=== PATIENT | female | born 1955 | race Caucasian/White ===

== ENCOUNTER 2024-08-30 11:16 | Outpatient (AMB) | payer OTHER, MEDICARE, SELFPAY ==
--- OUTSIDE RECORDS SUMMARY | 2024-08-26 23:59 | XMS_ITS | Continuity of Care Document ---
Author Organization [facility] Dustin lt Address [address] [place] [address]- Care Team Providers Care Reel Tender Name Role Phone Kaci NAIR, Uday Jefferson Primary Care Physician Encounter [facility] Date(s): 07/27/24 - 08/26/24 [facility] [address] [place] [address]- Encounter Type: Triage Allergies, Adverse Reactions, Alerts Substance Criticality Severity Reaction Reaction Severity Status codeine Active methadone-like opiates Active morphine Active Percocet Active Percodan Active Latex swollen and itc hy lips Active Immunizations Given and Recorded Vaccine Date Status Refusal Reason influenza virus vaccine, inactivated 11/10/21 Jon rded influenza virus vaccine, inactivated 12/16/20 Jon rded influenza virus vaccine, inactivated 10/24/19 Jon rded influenza virus vaccine, inactivated 10/19/18 Jon rded influenza virus vaccine, inactivated 11/04/17 Jon rded influenza virus vaccine, inactivated 11/24/16 Jon rded influenza virus vaccine, inactivated 11/23/15 Give n influenza virus vaccine, inactivated 11/10/15 Jon rded influenza virus vaccine, inactivated 07/16/15 Jon rded influenza virus vaccine, inactivated 05/14/14 Jon rded influenza virus vaccine, inactivated 03/23/13 Give n influenza virus vaccine, inactivated 01/18/08 Give n pneumococcal 20-valent conjugate vaccine 05/21/21 Recorded pneumococcal 13-valent vaccine 01/24/21 Given SARS-CoV-2 (COVID-19) mRNA BNT-162b2 vac 01/06/21 Recorded SARS-CoV-2 (COVID-19) mRNA BNT-162b2 vac 06/14/20 Recorded SARS-CoV-2 (COVID-19) mRNA BNT-162b2 vac 05/24/20 Recorded zoster vaccine, inactivated 03/04/20 Recorded zoster vaccine, inactivated 12/21/19 Recorded zoster vaccine, inactivated 1 05/28/17 Recorded Influenza Virus Vaccine (oldterm) 11/21/19 Recorde d Zoster Vaccine Live 09/07/16 Recorded Zostavax (oldterm) 08/22/16 Given tetanus-diphtheria toxoids (Td) 08/20/16 Given tetanus/diphtheria/pertussis, acel(Tdap) 06/03/15 Recorded FluLaval (oldterm) 2 11/19/11 Given FluLaval (oldterm) 11/14/09 Given Tet/Diphth/Acel, Pertussis (oldterm) 07/03/10 Give n Tetanus Toxoid Vaccine (oldterm) 06/16/99 Given 1Result Comment: [08/11/2017] ced mohr 2Admin Note: [facility] [facility] Medications divalproex sodium 500 mg oral tablet, extended release 1 tablet, By Mouth, Daily at bedtime, Take with 125mg tablet for total 625mg bedtime dose, # 90 tablet, 1 Refills, Maintenance, 07/02/23 10:37:00 AM EDT, [facility]/pharmacy #[id number], 158, cm, 05/17/23 13:32:00EDT, Height Start Date: 07/02/23 Status: Ordered Quantity: 90.0 Unit: tablet Repeat number: 2 Estrace Vaginal Cream 0.1 mg/g = 1 Gm, Vaginally, Every Wednesday and , # 42.5 Gm, 5 Refills, Maintenance, 05/26/24 9:58:00 AMEDT, [facility]/pharmacy #[id number], Partial fill upon patient request if the prescription is for a schedule IIopioid drug., 158, cm, 05/18/24 13:48:00 EDT, Height, 68.7, kg, 05/26/24 9:21:00 EDT, Dry Weight Start Date: 05/26/24 Status: Ordered Quantity: 42.5 Unit: g Repeat number: 6 folic acid 1 mg oral tablet 1, tablet, By Mouth, Daily, # 90 tablet, Refills 1, Maintenance, 06/16/24 3:01:00 PM EDT, Route to Pharmacy Electronically, [id number], 158, cm, 05/18/24 13:48:00 EDT, Height, 68.7, kg, 05/26/24 9:21:00 EDT, Dry Weight Start Date: 06/16/24 Status: Ordered Quantity: 90.0 Unit: tablet Repeat number: 1 levothyroxine 75 mcg (0.075 mg) oral tablet 1 tablet, By Mouth, Daily, # 90 tablet, 1 Refills, Maintenance, 08/17/24 4:15:00 PM EDT, [id number], 158, cm, 05/18/24 13:48:00 EDT, Height, 66.7, kg, 06/23/24 10:06:00 EDT, Dry Weight Start Date: 08/17/24 Status: Ordered Quantity: 90.0 Unit: tablet Repeat number: 1 lithium 150 mg oral capsule 1 capsule = 150 mg, By Mouth, Daily at bedtime, # 90 capsule, 1 Refills, Maintenance, 07/02/23 10:37:00 AM EDT, [facility]/pharmacy #[id number], 158, cm, 05/17/23 13:32:00 EDT, Height Start Date: 07/02/23 Status: Ordered Quantity: 90.0 Unit: capsule Repeat number: 2 mirabegron 25 mg oral tablet, extended release 1 tablet = 25 mg, By Mouth, Daily, do not crush or chew, # 30 tablet, 5 Refills, Maintenance, 05/26/24 9:52:00 AM EDT, ER Tablet, [facility]/pharmacy #[id number], Partial fill upon patient request if the prescription is for a schedule II opioid drug., 158, cm, 05/18/24 13:48:00 EDT, Height, 68.7, kg, 05/26/24 9:21:00 EDT, Dry Weight Start Date: 05/26/24 Status: Ordered Quantity: 30.0 Unit: tablet Repeat number: 6 mirabegron 50 mg oral tablet, extended release 1 tablet = 50 mg, By Mouth, Daily, do not crush or chew, # 90 tablet, 3 Refills, Maintenance, 08/25/24 11:06:00 AM EDT, ER Tablet, [facility]/pharmacy #[id number], Partial fill upon patient request if the prescription is for a schedule II opioid drug., 158, cm, 05/18/24 13:48:00 EDT, Height, 66.7, kg, 06/23/24 10:06:00 EDT, Dry Weight Start Date: 08/25/24 Status: Ordered Quantity: 90.0 Unit: tablet Repeat number: 4 mirabegron 50 mg oral tablet, extended release 1 tablet = 50 mg, By Mouth, Daily, do not crush or chew, # 30 tablet, 5 Refills, Maintenance, 06/23/24 10:15:00 AM EDT, ER Tablet, [facility]/pharmacy #[id number], Partial fill upon patient request if the prescription is for a schedule II opioid drug., 158, cm, 05/18/24 13:48:00 EDT, Height, 66.7, kg, 06/23/24 10:06:00 EDT, Dry Weight Start Date: 06/23/24 Status: Ordered Quantity: 30.0 Unit: tablet Repeat number: 6 omeprazole 40 mg oral enteric coated capsule 1 capsule, By Mouth, Daily, # 90 capsule, 1 Refills, Maintenance, 02/29/24 3:52:00 PM EST, [id number], 158, cm, 05/17/23 13:32:00 EDT, Height Start Date: 02/29/24 Status: Ordered Quantity: 90.0 Unit: capsule Repeat number: 1 propranolol 20 mg oral tablet 0.5, tablet, By Mouth, 3 times a day, # 135 tablet, Refills 5, Tot. Refills 5, Maintenance, 07/01/2409:38:00 AM EDT, Route to Pharmacy Electronically, [facility]/pharmacy #[id number], 158, cm, 05/17/23 13:32:00 EDT, Height Start Date: 07/02/23 Status: Ordered Quantity: 135.0 Unit: tablet Repeat number: 6 rosuvastatin 40 mg oral tablet 1 tablet, By Mouth, Daily, # 90 tablet, 1 Refills, Maintenance, 08/10/24 3:04:00 PM EDT, [id number], 158, cm, 05/18/24 13:48:00 EDT, Height, 66.7, kg, 06/23/24 10:06:00 EDT, Dry Weight Start Date: 08/10/24 Status: Ordered Quantity: 90.0 Unit: tablet Repeat number: 1 Problem List Condition Confirmation Course Effective Dates Status Health Status Informant Alport's syndrome 1 Confirmed Active Anemia Confirmed Active Bipolar disorder Confirmed Active Chronic kidney disease, stage 3a 2 Confirmed Active Colonoscopy 3 Confirmed Active Diverticulosis 4 Confirmed Active Dyskinesia Confirmed Active Esophageal reflux Confirmed Active 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 History of alcohol abuse Confirmed Active History of tobacco use Confirmed Active Hypercholesterolemia Confirmed Active Hypothyroid Confirmed Active Osteopenia Confirmed Active Osteoporosis Confirmed Active Right wrist pain Confirmed Active Polyp of colon 6 Confirmed Active PSP (progressive supranuclear palsy) Confirmed Active Decreased libido Confirmed Active RLS (restless legs syndrome) Confirmed Active Rhinitis Confirmed Active Left shoulder pain Confirmed Active Tremor Confirmed Active Tubular adenoma of colon Confirmed 08/06/16 Active Urinary incontinence Confirmed Active Vaginal dryness Confirmed Active 1causing persistent hematuria seen urology in past 2Per chart review meeting GFR criteria 3Colo 2011 normal, repeat 2021 4colo 2016 5left hip followed by [facility] 6colo 2016 Social History Social History Type Response Smoking Status Former smoker entered on: 03/23/13 Sex Sex Representation Female (finding) Patient Care team information Care Team Personnel Name: Jovita Perales RN Position: [facility] RN Member Role: Primary Care Nurse Name: Uday Clemons MD Position: [facility] Physician - Primary Care Member Role: PCP Address: [address] [place] [id number] Telecom: Name: Sarika Chamorro RN Position: S RN Member Role: Primary Care Nurse Name: Laura Purcell RN Position: S RN Member Role: Primary Care Nurse Care Team Related Persons Name: ABRAHAM GRANT Insurance Providers Guarantor name: AMISHAMEHRDAD GRANT Health Plan Information #: 1 Payer: MEDICARE B Payer Identifier: HANNA Member Number: [id number] Group Number: NA Subscriber Identifier: [id number] Relationship to Subscriber: self Coverage Type: NA Coverage Verification Date: NA Telecom: NA Address: Health Plan Information #: 2 Payer: [facility] Payer Identifier: NA Member Number: [id number] Group Number: HANNA Subscriber Identifier: [id number] Relationship to Subscriber: self Coverage Type: Medicare Other Coverage Verification Date: HANNA Telecom: HANNA Address: NA
--- NOTE | 2024-08-30 11:40 | A.OFFVIS_ITS ---
Intake Visit Reasons: 6m 6M RLS/?PSP Allergies codeine Allergy (Unknown, Verified 08/28/24 09:32) Unknown latex Allergy (Unknown, Verified 08/28/24 09:32) Unknown HPI Comments Details: 69 yo woman with underlying diagnosis of bipolar disorder and clinical features suggestive of possible mild progressive supranuclear palsy, and RLS. Multiple dopaminergic drugs were tried that did not help. But gabapentin given to her for RLS was helping during daytime too. Gabapentin was helping, like night and day. No side effects. [facility] Medical History (Updated 08/30/24 @ 11:41 by Drew Oquendo MD) HLD (hyperlipidemia) GERD (gastroesophageal reflux disease) Hypothyroidism Bipolar disorder RLS (restless legs syndrome) Anxiety PSP (progressive supranuclear palsy) Dyskinesia Review of Systems Const Details: Constitutional:?No fever, chills, fatigue, weight loss, or night sweats. HEENT:?No headache, vision changes, hearing loss, nasal congestion, sore throat. Neurological:? Restless leg syndrome Psychiatric:?No anxiety, depression, mood swings, sleep disturbance, or hallucinations. Endocrine:?No heat/cold intolerance, polydipsia, polyuria, or hair/skin changes. Hematologic/Lymphatic:?No easy bruising, bleeding, or lymphadenopathy. Integumentary (Skin):?No rash, lesions, itching, or color changes. ? Physical Exam Neuro Other: Mental Status: Alert and oriented to person, place, and time. Normal attention. Normal spontaneous speech, fluency, and comprehension. No obvious issues with mood and memory. Affect is appropriate. Cranial Nerves: CN II: Visual baer full to confrontation, visual acuity intact. CN III, IV, : Pupils equal, round, reactive to light and accommodation. Extraocular movements are normal. CN V: Facial sensation is normal. CN VII: Facial movements symmetrical. CN VIII: Hearing intact to bedside conversation is normal. CN IX, X: Palate elevates symmetrically. CN XI: Shoulder shrug and head turn symmetrical. CN XII: Tongue midline without atrophy or fasciculations. Extrapyramidal: Full facial expressions and blinking. No rigidity. Movements are appropriate with no tremor or abnormality. Speech: Normal; no dysarthria or tremor. Assessment & Plan Assessment & Plan (1) RLS (restless legs syndrome): Code(s): G25.81 - Restless legs syndrome Category: Medical Plan Impression: Restless leg syndrome Rec: Gabapentin 300mg one at bedtime Medications: New gabapentin 300 mg PO DAILY 90 caps 1RF Coding Level of Care Code Est Pt Level 3 (03153) Diagnoses RLS (restless legs syndrome) G25.81
== END 2024-08-30 11:47 | disposition home or self-care (01) ==
LOC: HO.HSM 11:17
PROVIDERS: PCP Internal Medicine; Visit Provider Psychiatry & Neurology Neurology
DX: G25.81 Restless legs syndrome (principal)
CPT/HCPCS: 99213